=== PATIENT | female | born 1965 | race Caucasian/White ===

== ENCOUNTER 2016-07-12 14:48 | Emergency (ER) | payer OTHER ==
--- NOTE | 2016-07-12 16:33 | ED Physician Chart ---
Chief Complaint/HPI - Patient Information Date Seen:: 07/12/16 Time Seen:: 16:00 Chief Complaint:: elbow back foot pain History of Present Illness:: location: general quality: sharp pain severity: mild duration: one week context: pt reports a ground level fall one week ago in her living room. fell over a piece of furniture. pt was visiting another family/friend inpatient at this facility and decided to come to the ER for physician eval. no paralysis or paresthesia, normal gait. no visible grimace with movements. no bowel or bladder incontinence. pain at left elbow, lumbar spine and right foot after fall. also reports large bruise on left thigh which is now healing. no acute complaints. all pain complaints stem from fall one week ago. no new complaint, no new injury. mod factors: none assoc s/s: none hx from pt Allergies:: Allergies Allergy/AdvReac Type Severity Reaction Status Date / Time No Known Allergies Allergy Verified 07/12/16 15:01 Vitals:: Vital Signs - 8 hr 07/12/16 14:48 Temp 97.3 F HR 66 RR 16 BP 104/74 O2 Sat % 100 Historian:: Patient Review:: Nurse's Note Reviewed Review of Systems - Review of Systems General/Constitutional: No fever, No chills, No weight loss, No weakness, No diaphoresis, No edema, No loss of appetite Skin: No skin lesions, No rash, No bruising Head: No headache, No light-headedness Eyes: No loss of vision, No pain, No diplopia ENT: No earache, No nasal drainage, No sore throat, No tinnitus Neck: No neck pain, No swelling, No thyromegaly, No stiffness, No mass noted Cardio Vascular: No chest pain, No palpitations, No PND, No orthopnea, No edema Pulmonary: No SOB, No cough, No sputum, No wheezing GI: No nausea, No vomiting, No diarrhea, No pain, No melena, No hematochezia, No constipation, No hematemesis G/U: No dysuria, No frequency, No hematuria Musculoskeletal: Bone or joint pain (left elbow pain), Back pain (lumbar spine pain), No back pain, No muscle pain Endocrine: No polyuria, No polydipsia Psychiatric: No prior psych history, No depression, No anxiety, No suicidal ideation Hematopoietic: No bruising, No lymphadenopathy Allergic/Immuno: No urticaria, No angioedema Neurological: No syncope, No focal symptoms, No weakness, No paresthesia, No headache, No seizure, No dizziness, No confusion, No vertigo Past Medical History - Past Medical History Past Medical History: No significant medical hx Family History: None Social History: Non Smoker, No Alcohol, No Drug Use, Surgical History: None Psychiatricy History: None Medication: None Family Medical History - Family Member Mother Hx Family Cancer: Yes Physical Exam - Physical Examination General/Constitutional: Awake, Well-developed, well-nourished, Alert, No distress, GCS 15, Non-toxic appearing, Ambulatory Head: Atraumatic Eyes: Lids, conjuctiva normal, PERRL, EOMI Skin: Nl inspection, No rash, No skin lesions, No ecchymosis, Well hydrated, No lymphadenopathy ENMT: External ears, nose nl, Nasal exam nl, Lips, teeth, gums nl Neck: Nontender, Full ROM w/o pain, No nuchal rigidity, No mass Respiratory: Nl effort/Exclusion, Clear to Auscultation, No Wheeze/Rhonchi/Rales Cardio Vascular: RRR, No murmur, gallop, rubs, NL S1 S2 GI: No tenderness/rebounding/guarding, Normal BS's : No CVA tenderness Extremities: No tenderness or effusion, Full ROM, normal strength in all extremities, No edema, Normal digits & nails Neuro/Psych: Alert/oriented, DTR's symmetric, Normal sensory exam, Normal motor strength, Judgement/insight normal, Mood normal, Normal gait, No focal deficits Misc: normal gait, Normal back, No paraspinal tenderness Labs/Radiology/EKG Results - Radiology Results Results: xray left elbow normal alignment no acute dislocation no acute fracture xray right foot normal bony alignment no acute dislocation no acute fracture x ray lumbar spine normal bony alignment no acute dislocation no acute fracture ER READ Assessment - Assessment General Assessment: stable patient while in ER. ED Septic Shock - . Is Septic Shock (SBP<90, OR Lactate>4 mmol\L) present?: No - <6hrs of presentation: Vital Signs: Vital Signs - 8 hr 07/12/16 14:48 Temp 97.3 F HR 66 RR 16 BP 104/74 O2 Sat % 100 Reassessment (Disposition) - Reassessment Reassessment:: MDM: stable patient with history of fall one week ago. complaints are mild. pt has been doing all of her own instrumental activities of daily living. can easily robe/ disrobe, move from supine to seated to standing without complaint. there is a healing bruise at left thigh which is consistent with history of fall one week ago. pt is very stable, no acute finding on this exam. ER course: stable during ER course. improved after meds Reassessment Condition:: Improved - Diagnosis Diagnosis:: left elbow sprain, strain/contusion lumbar spine strain right foot sprain, contusion - Aftercare/Follow up Instructions Aftercare/Follow-Up Instructions:: Refer to Discharge Instructions - Patient Disposition Discharge/Transfer:: Home Condition at Disposition:: Stable, Improved
--- NOTE | 2016-07-13 10:52 | Diagnostic Imaging Report ---
Left elbow 3 views Indication: Fall Comparison: none Findings: Osteopenia is suspected. No evidence of an acute fracture or dislocation. No joint effusion. No significant focal soft tissue swelling. Impression: No evidence of an acute fracture. In the setting of trauma, if clinical symptoms persist and there is continued concern for an occult fracture, follow up exams in 5-7 days is suggested.
--- NOTE | 2016-07-13 10:53 | Diagnostic Imaging Report ---
Lumbar spine 3 views Indication: Fall Comparison: none Findings: There is probable minimal scoliosis. No evidence of an acute compression fracture or subluxation. Mild generalized degenerative changes are noted with minimal disc space loss of height at L5/S1. The SI joints are preserved. Impression: No evidence of an acute compression fracture or subluxation. If clinically indicated CT examination may also be obtained Mild degenerative changes. In the setting of trauma, if clinical symptoms persist and there is continued concern for an occult fracture, follow up exams in 5-7 days is suggested.
--- NOTE | 2016-07-13 11:08 | Diagnostic Imaging Report ---
Right foot 3 views Indication: Trauma Comparison: none Findings: An ossicle measuring 7 mm is seen dorsal to the navicular bone. Moderate degenerative changes are seen greatest at the first MTP joint. No evidence of an acute fracture or significant focal soft tissue swelling. Moderate distal Achilles and small plantar calcaneal spurs are noted. IMPRESSION: No evidence of an acute fracture. Degenerative changes, greatest at the first MTP joint Hallux valgus. In the setting of trauma, if clinical symptoms persist and there is continued concern for an occult fracture, follow up exams in 5-7 days is suggested.
== END 2016-07-12 18:36 | disposition home or self-care (01) ==
LOC: ER 14:48
DX: S53.492A Other sprain of left elbow, initial encounter (principal); S93.691A Other sprain of right foot, initial encounter; S39.012A Strain of muscle, fascia and tendon of lower back, initial encounter; W19.XXXA Unspecified fall, initial encounter; Y93.89 Activity, other specified; Y92.89 Other specified places as the place of occurrence of the external cause; Y99.8 Other external cause status
CPT/HCPCS: 99284; 96372 ×2; 72100; 73080; 73630; J1885; Z7502